=== PATIENT | male | born 1990 | race Caucasian/White ===

== ENCOUNTER 2019-01-14 23:13 | Emergency (ER) | payer MEDICAID, OTHER ==
[~2019-01-14] VITALS: Ht 188 cm; Wt 73.4 kg
[2019-01-14 23:33] VITALS: BP 144/99
== END 2019-01-15 00:47 | disposition home or self-care (01) ==
LOC: ED 01-15 00:06
DX: F41.1 Generalized anxiety disorder (principal); Z00.00 Encounter for general adult medical examination without abnormal findings; F17.210 Nicotine dependence, cigarettes, uncomplicated; F32.9 Major depressive disorder, single episode, unspecified
CPT/HCPCS: 99284

== ENCOUNTER 2020-05-17 16:15 | Emergency (ER) | payer MEDICAID, OTHER ==
[~2020-05-17] VITALS: Ht 188 cm; Wt 85.6 kg
--- NOTE | 2020-05-17 16:35 | NUR ---
pt in with C/O "possible infection" to the RUE/elbow juntion. pt states he believes "infection" started from IV drug use 3 days ago. Also reports that he tried to "pop it" with a sewing needle that he cleaned "with hydrogen prodixe" roughly around 1400.
--- NOTE | 2020-05-17 17:59 | NUR ---
out of room for imaging.
[2020-05-17] MEDS ORDERED: LIDOCAINE-MPF 1%, 5ML INFIL ONE (18:30)
[2020-05-17] MEDS ORDERED: LIDOCAINE-MPF 1%, 5ML ONE (18:38)
--- NOTE | 2020-05-17 18:52 | NUR ---
BEDSIDE REPORT FROM VERONIQUE SARGENT, PT CARE TRANSFERRED AT THIS TIME.
[2020-05-17] MEDS ORDERED: CLINDAMYCIN PMX 600MG/50ML 50 ML ONE (18:57)
[2020-05-17] MEDS ORDERED: CLINDAMYCIN PMX 600MG/50ML 50 ML IV ONE (19:00)
[2020-05-17] MEDS ORDERED: SODIUM CHLORIDE 0.9% 1,000ML IVBOLUS ONE (19:00)
--- NOTE | 2020-05-17 19:03 | NUR ---
pt medicated per nov, sitting up in [facility], tachy on ecg, NAD, denies additional needs at this time. WCTM. waiting for meds to run then DC.
[2020-05-17 20:08] VITALS: BP 125/84
--- NOTE | 2020-05-17 20:09 | NUR ---
Patient given discharge instructions and they have confirmed that they understand the instructions. Patient ambulatory with steady gait. denies additional questions or needs at this time. NAD. No pt belongings found in room after DC.
== END 2020-05-17 20:28 | disposition home or self-care (01) ==
LOC: ED 20:00
DX: L02.413 Cutaneous abscess of right upper limb (principal); F11.10 Opioid abuse, uncomplicated; F15.10 Other stimulant abuse, uncomplicated; R51 Headache; R11.0 Nausea
CPT/HCPCS: 10060; 73080; 96365; 99284; J7030

== ENCOUNTER 2020-05-19 18:41 | Emergency (ER) | payer OTHER ==
[~2020-05-19] VITALS: Ht 188 cm; Wt 79.0 kg
[2020-05-19] MEDS ORDERED: SODIUM CHLORIDE 0.9% 1,000ML IVBOLUS ONE (19:00)
[2020-05-19] MEDS ORDERED: SODIUM CHLORIDE FLUSH 10ML SYR IVF ONE (19:00)
--- NOTE | 2020-05-19 19:33 | NUR ---
PT SITTING IN BED, RESPIRATIONS EVEN AND UNLABORED. NO SIGNS OF DISTRESS, CONVERSING WITH THIS RN. PT TO IMAGING AT THIS TIME.
[2020-05-19 19:51] LABS: ANION GAP 8 mmol/L (5-15); CALCIUM 8.9 mg/dL (8.5-10.1); CHLORIDE 104 mmol/L (98-107); CREATININE 0.86 mg/dL (0.7-1.3)
[2020-05-19] MEDS ORDERED: POTASSIUM CHLORIDE 20 MEQ PACKET PO ONE (20:00)
[2020-05-19] MEDS ORDERED: POTASSIUM CHLORIDE 20 MEQ PACKET ONE (20:27)
--- NOTE | 2020-05-19 20:29 | NUR ---
PT SITTING IN BED, NO SIGNS OF DISTRESS, TALKING ON PHONE.
[2020-05-19 20:38] LABS: BASOPHILS # (AUTO) 0.05 x10^3/uL (0-0.1); BASOPHILS % (AUTO) 1 % (0-1); EOSINOPHILS # (AUTO) 0.15 x10^3/uL (0-0.4); EOSINOPHILS % (AUTO) 2 % (1-7); LYMPHOCYTES # (AUTO) 1.71 x10^3/uL (1-3.4); LYMPHOCYTES % (AUTO) 18 % (22-44); MD NO; MEAN CORPUSCULAR HEMOGLOBIN 29.9 pg (27.5-34.5); MEAN CORPUSCULAR HGB CONC 33.4 g/dL (33.2-36.2); MEAN CORPUSCULAR VOLUME 89.3 fL (81-97); MEAN PLATELET VOLUME 7.1 fL (7.4-10.4); MONOCYTES # (AUTO) 0.88 x10^3/uL (0.2-0.8); MONOCYTES % (AUTO) 9 % (2-9); NEUTROPHILS % (AUTO) 71 % (42-75); PLATELET COUNT 350 x10^3/uL (130-400); RED BLOOD COUNT 4.45 x10^6/uL (4.38-5.82); RED CELL DISTRIBUTION WIDTH 13.3 % (9.4-14.8)
--- NOTE | 2020-05-19 20:57 | NUR ---
PT TO IMAGING.
[2020-05-19 21:10] VITALS: BP 116/67
--- NOTE | 2020-05-19 21:12 | NUR ---
PT AMBULATORY TO BATHROOM WITH STEADY GAIT. NO SIGNS OF DISTRESS.
--- NOTE | 2020-05-19 21:16 | NUR ---
PT SITTING IN BED, CONNECTED TO BP, CARDIAC, AND O2 MONITORS, RESPIRATIONS EVEN AND UNLABORED, NO SIGNS OF DISTRESS. ALL NEEDS MET AT THIS TIME.
[2020-05-19] MEDS ORDERED: CLINDAMYCIN 300 MG CAPSULE PO ONE (21:30)
[2020-05-19] MEDS ORDERED: CLINDAMYCIN 300 MG CAPSULE ONE (21:30)
== END 2020-05-19 21:47 | disposition home or self-care (01) ==
LOC: ED 21:26
DX: L03.113 Cellulitis of right upper limb (principal); E87.6 Hypokalemia; F17.200 Nicotine dependence, unspecified, uncomplicated; M79.661 Pain in right lower leg
CPT/HCPCS: 10060; 36415; 73060; 76881; 80048; 82040; 83605; 84145; 85025; 87040; 93971; 96360; 99285; J7030

== ENCOUNTER 2021-01-08 23:02 | Emergency (ER) | payer MEDICAID, OTHER ==
[~2021-01-08] VITALS: Ht 188 cm; Wt 84.0 kg
[2021-01-08 23:05] VITALS: BP 144/86
[2021-01-09] MEDS ORDERED: LIDOCAINE-MPF 1%, 5ML INFIL ONE (00:30)
== END 2021-01-09 01:07 | disposition home or self-care (01) ==
LOC: ED 23:32
DX: L02.413 Cutaneous abscess of right upper limb (principal); F15.10 Other stimulant abuse, uncomplicated; I10 Essential (primary) hypertension
CPT/HCPCS: 10060; 99284